=== PATIENT | female | born 1975 | race Caucasian/White ===

== ENCOUNTER 2016-07-21 19:56 | Emergency (ER) | payer MEDICAID ==
[2016-07-21 19:58] VITALS: BMI 31.1
[2016-07-21 20:07] VITALS: RESP 18; TEMP 98.1
[2016-07-21] MEDS ORDERED: Oxycodone/Acetaminophen 5/325 mg Tab PO STA (20:08)
--- NOTE | 2016-07-21 20:13 | ED PDOC ---
Arrival/HPI - General Chief Complaint: Lower Extremity Problem/Injury Time Seen by Provider: 07/21/16 19:59 Historian: Patient - History of Present Illness Narrative History of Present Illness (Text): 07/21/16 20:09 41 y/o female, pmh including sciatica, c/o rt. lower back/gluteal pain radiating to the rt. lower extremity started yesterday with no fall or trauma. Sharp pain, aggravated by movement, no pain medication taken for the past 8 hours, no numbness or tingling, no urinary symptoms, no urinary or bowel incontinence or retention, no night sweat, no dizziness, no flank pain, no hematuria, no other medical or psychological complaints. Past Medical History - Provider Review Nursing Documentation Reviewed: Yes - Past Medical History Past Medical History: No Previous - Psychiatric Hx Depression: No Hx Emotional Abuse: No Hx Physical Abuse: No Hx Substance Use: No - Surgical History Hx Appendectomy: Yes - Anesthesia Hx Anesthesia: No - Suicidal Assessment Feels Threatened In Home Enviroment: No Family/Social History - Physician Review Nursing Documentation Reviewed: Yes Family/Social History: Unknown Family HX Smoking Status: Never Smoked Hx Alcohol Use: No Hx Substance Use: No Hx Substance Use Treatment: No Allergies/Home Meds Allergies/Adverse Reactions: Allergies No Known Allergies Allergy (Verified 07/21/16 19:59) pt bstates no allergy to medication Home Medications: Home Meds Medication Instructions Recorded Confirmed Hyoscyamine [Levsin] 10/11/15 Review of Systems - Review of Systems Constitutional: absent: Fatigue, Fevers Eyes: absent: Vision Changes ENT: absent: Hearing Changes Respiratory: absent: Cough Cardiovascular: absent: Chest Pain Gastrointestinal: absent: Abdominal Pain, Diarrhea, Nausea, Vomiting Musculoskeletal: Back Pain. absent: Arthralgias, Neck Pain, Joint Swelling, Myalgias Skin: absent: Rash, Pruritis, Skin Lesions, Laceration, Abscess, Ulcer, Cellulitis Physical Exam Vital Signs Reviewed: Yes Vital Signs Temp Pulse Resp BP Pulse Ox 07/21/16 20:06 98.1 F 76 18 130/76 99 Temperature: Afebrile Blood Pressure: Normal Pulse: Regular Respiratory Rate: Normal Appearance: Positive for: Well-Appearing, Non-Toxic, Comfortable Pain Distress: Severe Mental Status: Positive for: Alert and Oriented X 3 - Systems Exam Head: Present: Atraumatic, Normocephalic Pupils: Present: PERRL Extroacular Muscles: Present: EOMI Conjunctiva: Present: Normal Mouth: Present: Moist Mucous Membranes Neck: Present: Normal Range of Motion Respiratory/Chest: Present: Clear to Auscultation, Good Air Exchange. No: Respiratory Distress, Accessory Muscle Use Cardiovascular: Present: Regular Rate and Rhythm, Normal S1, S2. No: Murmurs Abdomen: Present: Normal Bowel Sounds. No: Tenderness, Distention, Peritoneal Signs Back: Present: Normal Inspection, Other (LS spine: no midline tenderness or step off, no paraspinal tenderness, no rash, FROM without limitation, sensation intact, motor 5/5, no saddling gait. ). No: CVA Tenderness, Midline Tenderness , Paraspinal Tenderness, Pain with Leg Raise Upper Extremity: Present: Normal Inspection. No: Cyanosis, Edema Lower Extremity: Present: Normal Inspection. No: Edema Neurological: Present: GCS=15, CN II-XII Intact, Speech Normal Skin: Present: Warm, Dry, Normal Color. No: Rashes Psychiatric: Present: Alert, Oriented x 3, Normal Insight, Normal Concentration Medical Decision Making ED Course and Treatment: 07/21/16 20:12 -toradol, percocet and lidoderm patch 07/21/16 21:14 -Urine hcg negative -Pt. feels better, will discharge home. -Discharge home with cane, duexis, flexeril, lidoderm patch, heat compression, avoid strenuous exercise or activity, follow up with your own pmd and pain management within 2 days, return to the ER for any new or worsening signs or symptoms. - Medication Orders Current Medication Orders: Discontinued Medications Ketorolac Tromethamine (Toradol) 60 mg IM STAT STA Stop: 07/21/16 20:09 Last Admin: 07/21/16 20:34 Dose: 60 MG IM Administration Charges Document 07/21/16 20:34 EQ (Rec: 07/21/16 20:34 EQ [facility] [id number]) Injection Site MAR Injection Site Left Deltoid Charges for Administration # of IM Administrations 1 Lidocaine (Lidoderm) 1 ea TD DAILY SKYLAR Lidocaine (Lidoderm) 1 ea TD STAT STA Stop: 07/21/16 20:35 Last Admin: 07/21/16 21:09 Dose: 1 EA MAR Transdermal Patch Site Document 07/21/16 21:09 EQ (Rec: 07/21/16 21:09 EQ [facility] [id number]) Transdermal Patch Site Transdermal Patch Site Right Lower Back Oxycodone/Acetaminophen (Percocet 5/325 Mg Tab) 1 tab PO STAT STA Stop: 07/21/16 20:09 Last Admin: 07/21/16 20:34 Dose: 1 TAB - PA / LAUNDRY CLERK / Resident Statement MD/DO has reviewed & agrees with the documentation as recorded. Disposition/Present on Arrival - Present on Arrival Any Indicators Present on Arrival: No History of DVT/PE: No History of Uncontrolled Diabetes: No Urinary Catheter: No History of Decub. Ulcer: No History Surgical Site Infection Following: None - Disposition Have Diagnosis and Disposition been Completed?: Yes Diagnosis: Sciatica Disposition: HOME/ ROUTINE Disposition Time: 20:13 Patient Plan: Discharge Patient Problems: Current Active Problems Problem Status Diagnosed Sciatica Acute Condition: IMPROVED Additional Instructions: Discharge home with cane, duexis, flexeril, lidoderm patch, heat compression, avoid strenuous exercise or activity, follow up with your own pmd and pain management within 2 days, return to the ER for any new or worsening signs or symptoms. Prescriptions: Ibuprofen/Famotidine [Duexis 26.6 mg-800 mg] 1 tab PO TID PRN #21 tab PRN Reason: Other Cyclobenzaprine [Cyclobenzaprine HCl] 10 mg PO TID PRN #21 tab PRN Reason: Other Lidocaine 5% [Lidoderm] 1 patch TOP DAILY PRN #10 patch PRN Reason: Other Referrals: [facility] [place] [Outside] - Follow up with primary Forms: WORK NOTE
[2016-07-21] MEDS ORDERED: Lidocaine 5% Patch TD STA (20:34)
[2016-07-21 21:40] VITALS: BP 123/72; PULSE 70; O2SAT 100
[2016-07-22] MEDS ORDERED: Lidocaine 5% Patch TD SCH (10:00)
== END 2016-07-21 21:41 | disposition home or self-care (01) ==
LOC: ED 19:56
DX: M54.30 Sciatica, unspecified side (principal)
CPT/HCPCS: 96372; 99284; J1885

== ENCOUNTER 2016-09-03 17:34 | Emergency (ER) | payer MEDICAID ==
[2016-09-03 17:34] VITALS: BMI 31.1
[2016-09-03 17:54] VITALS: TEMP 98.7
[2016-09-03 18:52] LABS: ADD MANUAL DIFF? NO
[2016-09-03 18:58] LABS: URINE BILIRUBIN NEGATIVE (NEGATIVE); URINE BLOOD NEGATIVE (NEGATIVE); URINE GLUCOSE (UA) NEGATIVE (NEGATIVE); URINE KETONE NEGATIVE (NEGATIVE); URINE LEUKOCYTE ESTERASE NEGATIVE Leu/uL (NEGATIVE); URINE PROTEIN NEGATIVE mg/dL (<30 mg/dL); URINE UROBILINOGEN 0.2 E.U./dL (<1 E.U./dL)
[2016-09-03 18:59] LABS: BASO # 0.03 K/mm3 (0.0-2.0); BASO % 0.7 % (0.0-3.0); EOS # 0.1 (0.0-0.7); EOS % 2.9 % (1.5-5.0); GRAN # 1.76 (1.4-6.5); GRAN % 39.7 % (50.0-68.0); HEMATOCRIT 34.2 % (36.0-48.0); LYMPH # 2.2 (1.2-3.4); LYMPH % 48.8 % (22.0-35.0); MEAN CELL VOLUME 82.4 fL (80.0-105.0); MEAN CORPUSCULAR HEMOGLOBIN 28.2 pg (25.0-35.0); MEAN CORPUSCULAR HGB CONC 34.2 g/dl (31.0-37.0); MEAN PLATELET VOLUME 9.9 fl (7.0-11.0); MONO # 0.4 (0.1-0.6); MONO % 7.9 % (1.0-6.0); PLATELET COUNT 270 10^3/uL (120.0-450.0); RED CELL DISTRIBUTION WIDTH 12.4 % (11.5-14.5); WHITE BLOOD COUNT 4.4 10^3/ul (4.5-11.0)
[2016-09-03 19:09] LABS: ALB/GLOB RATIO 1.3 (1.1-1.8); ALKALINE PHOSPHATASE 61 U/L (38-133); ALT/SGPT 31 U/L (7-56); AST/SGOT 22 U/L (15-39); BILIRUBIN,TOTAL 0.7 mg/dL (0.2-1.3); BLOOD UREA NITROGEN 12 mg/dL (7-21); CALCIUM 9.3 mg/dL (8.4-10.5); CARBON DIOXIDE 24 mmol/L (21-33); CHLORIDE 105 mmol/L (98-107); GFR AFRICAN-AMERICAN > 60; GLUCOSE,RANDOM 96 mg/dL (70-110); POTASSIUM 3.8 mmol/L (3.6-5.0); SODIUM 136 mmol/L (132-148); URINE APPEARANCE CLEAR (CLEAR); URINE COLOR LIGHT YELLOW (YELLOW)
[2016-09-03 19:22] LABS: TROPONIN I < 0.01 ng/mL
[2016-09-03 19:38] LABS: PARTIAL THROMBOPLASTIN TIME 28.1 Seconds (23.7-30.8)
[2016-09-03 19:47] LABS: D DIMER 0.36 mg/L FEU (0-0.50)
--- NOTE | 2016-09-03 19:48 | ED PDOC ---
Arrival/HPI - General Historian: Patient - General Chief Complaint: Chest Pain Time Seen by Provider: 09/03/16 17:35 - History of Present Illness Narrative History of Present Illness (Text): 09/03/16 19:41 41yo female with no PMHx present with complaint of right sided chest pain x 3days. States chest pain started while lifting laundry 3days ago. She notes that she was seen by her PMD for the pain and given injection for the pain. she came to ED for the persistent pain with movement and deep inspiration. Pain is localized to her right upper sternal wall. States she took Ibuprofen earlier today without relieve. she denies SOB, diaphoresis, recent surgery, OCP use, recent travel, any other complaint. (Juan Padron A) Past Medical History - Provider Review Nursing Documentation Reviewed: Yes - Past Medical History Past Medical History: No Previous - Psychiatric Hx Depression: No Hx Emotional Abuse: No Hx Physical Abuse: No Hx Substance Use: No - Surgical History Hx Appendectomy: Yes - Anesthesia Hx Anesthesia: No Hx Anesthesia Reactions: No Hx Malignant Hyperthermia: No - Suicidal Assessment Feels Threatened In Home Enviroment: No Family/Social History - Physician Review Nursing Documentation Reviewed: Yes Family/Social History: Unknown Family HX Smoking Status: Never Smoked Hx Alcohol Use: No Hx Substance Use: No Hx Substance Use Treatment: No Allergies/Home Meds Allergies/Adverse Reactions: Allergies No Known Allergies Allergy (Verified 07/21/16 19:59) pt bstates no allergy to medication Home Medications: Home Meds Medication Instructions Recorded Confirmed Hyoscyamine [Levsin] 10/11/15 Review of Systems - Physician Review All systems were reviewed & negative as marked: Yes - Review of Systems Constitutional: Normal Eyes: Normal ENT: Normal Respiratory: Normal Cardiovascular: Chest Pain. absent: Palpitations, Edema, Calf Pain, Orthopnea Gastrointestinal: Normal Genitourinary Female: Normal Musculoskeletal: Normal Skin: Normal Neurological: Normal Endocrine: Normal Hemo/Lymphatic: Normal Psychiatric: Normal Physical Exam Vital Signs Reviewed: Yes Temperature: Afebrile Blood Pressure: Normal Pulse: Regular Respiratory Rate: Normal Appearance: Positive for: Well-Appearing, Non-Toxic, Comfortable Pain Distress: None Mental Status: Positive for: Alert and Oriented X 3 - Systems Exam Head: Present: Atraumatic, Normocephalic Pupils: Present: PERRL Extroacular Muscles: Present: EOMI Conjunctiva: Present: Normal Mouth: Present: Moist Mucous Membranes Neck: Present: Normal Range of Motion Respiratory/Chest: Present: Clear to Auscultation, Good Air Exchange, Tender to Palpation (Right upper sternal wall). No: Respiratory Distress, Accessory Muscle Use, Wheezes, Decreased Breath Sounds, Rales, Retracting, Rhonchi Cardiovascular: Present: Regular Rate and Rhythm, Normal S1, S2. No: Murmurs Abdomen: Present: Normal Bowel Sounds. No: Tenderness, Distention, Peritoneal Signs Back: Present: Normal Inspection Upper Extremity: Present: Normal Inspection. No: Cyanosis, Edema Lower Extremity: Present: Normal Inspection. No: Edema Neurological: Present: GCS=15, CN II-XII Intact, Speech Normal Skin: Present: Warm, Dry, Normal Color. No: Rashes Psychiatric: Present: Alert, Oriented x 3, Normal Insight, Normal Concentration Vital Signs Temp Pulse Resp BP Pulse Ox 09/03/16 20:19 69 16 113/66 99 09/03/16 17:34 98.7 F 98 H 18 114/70 100 Medical Decision Making ED Course and Treatment: I was available for consultation during PA evaluation. The chart was reviewed by me, and I agree with disposition. The documented history was done by the physician dry pan operator. The documented physical exam was done by the physician dry pan operator. The documented procedures were done by the physician dry pan operator. ( Favio Weathers) Pt was comfortable in ED. Her CE was negative. PT do not meet the PERC criteria. CXR was negative. EKG NSR @77bpm with no ST changes Pt's pain is likely MS in origin. Her pain improved in ED with medication. She already have NSAID from her PMD for the pain. She was DC home with Tramadol and referred to her PMD/Pharmacist Intern. Advised TRT ED for any new or worsening symptoms. She expressed understanding of the instructions. (Juan Padron) - Lab Interpretations Lab Results: 09/03/16 18:40 09/03/16 18:40 Lab Results 09/03/16 18:40: Urine Opiates Screen Negative, Urine Methadone Screen Negative, Ur Barbiturates Screen Negative, Ur Phencyclidine Scrn Negative, Ur Amphetamines Screen Negative, U Benzodiazepines Scrn Negative, U Oth Cocaine Metabols Negative, U Cannabinoids Screen Negative 09/03/16 18:40: Sodium 136, Potassium 3.8, Chloride 105, Carbon Dioxide 24, Anion Gap 11, BUN 12, Creatinine 0.6, Est GFR ( Amer) > 60, Est GFR (Non- Af Amer) > 60, Random Glucose 96, Calcium 9.3, Magnesium 2.0, Total Bilirubin 0.7, AST 22, ALT 31, Alkaline Phosphatase 61, Lactate Dehydrogenase 393, Total Creatine Kinase 133, Troponin I < 0.01, Total Protein 7.0, Albumin 4.0, Globulin 3.0, Albumin/Globulin Ratio 1.3 09/03/16 18:40: Urine Color Light yellow, Urine Appearance Clear, Urine pH 7.0, Ur Specific [place] <= 1.005, Urine Protein Negative, Urine Glucose (UA) Negative, Urine Ketones Negative, Urine Blood Negative, Urine Nitrate Negative, Urine Bilirubin Negative, Urine Urobilinogen 0.2, Ur Leukocyte Esterase Negative 09/03/16 18:40: PT 10.8, INR 1.00, APTT 28.1, D-Dimer, Quantitative 0.36 09/03/16 18:40: WBC 4.4 L D, RBC 4.15, Hgb 11.7 L, Hct 34.2 L, MCV 82.4, MCH 28.2, MCHC 34.2, RDW 12.4, Plt Count 270, MPV 9.9, Gran % 39.7 L, Lymph % (Auto ) 48.8 H, [place] % (Auto) 7.9 H, Eos % (Auto) 2.9, Baso % (Auto) 0.7, Gran # 1.76 , Lymph # 2.2, [place] # 0.4, Eos # 0.1, Baso # 0.03 - RAD Interpretation Radiology Orders: 09/03/16 18:03 CHEST PORTABLE [RAD] Stat - Medication Orders Current Medication Orders: Discontinued Medications Ketorolac Tromethamine (Toradol) 30 mg IVP STAT STA Stop: 09/03/16 18:04 Last Admin: 09/03/16 18:37 Dose: 30 mg Disposition/Present on Arrival - Present on Arrival Any Indicators Present on Arrival: No History of DVT/PE: No History of Uncontrolled Diabetes: No Urinary Catheter: No History of Decub. Ulcer: No History Surgical Site Infection Following: None - Disposition Have Diagnosis and Disposition been Completed?: Yes Disposition Time: 20:20 - Disposition Diagnosis: Chest pain Disposition: HOME/ ROUTINE Condition: STABLE Discharge Instructions (ExitCare): Chest Pain (ED) Additional Instructions: Follow up with your Doctor Return to ED for any new or worsening symptoms Prescriptions: traMADol [Ultram] 50 mg PO Q6 #9 tab Referrals: Willard Talavera DPM [Primary Care Provider] - Follow up with primary Forms: WORK NOTE
[2016-09-03 20:20] VITALS: BP 113/66; PULSE 69; RESP 16; O2SAT 99
--- NOTE | 2016-09-04 07:56 | RAD ---
HISTORY: chest pain COMPARISON: No prior. FINDINGS: LUNGS: No active pulmonary disease. PLEURA: No significant pleural effusion identified, no pneumothorax apparent. CARDIOVASCULAR: Normal heart size. Nasogastric tube extends to left upper quadrant of abdomen. OSSEOUS STRUCTURES: No significant abnormalities. VISUALIZED UPPER ABDOMEN: Normal. OTHER FINDINGS: None. IMPRESSION: No active disease. NG tube appropriately positioned.
--- NOTE | 2016-09-05 02:03 | CARD ---
APPROVED REPORT EKG Measurement Heart [id number] ME [id number] <Conclusion> Normal sinus rhythm Normal ECG
== END 2016-09-03 20:30 | disposition home or self-care (01) ==
LOC: ED 17:34
DX: R07.9 Chest pain, unspecified (principal)
CPT/HCPCS: 71010; 80053; 80324; 80345; 80346; 80349; 80353; 80358; 80361; 81003; 82550; 83615; 83735; 83992; 84484; 85025; 85378; 85610; 85730; 96374; 99283; J1885

== ENCOUNTER 2016-12-21 17:58 | Emergency (ER) | payer MEDICAID ==
[2016-12-21 18:13] VITALS: BMI 30.9
[2016-12-21 18:17] VITALS: TEMP 98.7
[2016-12-21] MEDS ORDERED: TDAP Vaccine 0.5 mL Syr IM ONE (20:28)
--- NOTE | 2016-12-21 20:29 | ED PDOC ---
Arrival/HPI - General Chief Complaint: Abnormal Skin Integrity Time Seen by Provider: 12/21/16 18:48 Historian: Patient - History of Present Illness Narrative History of Present Illness (Text): 12/22/16 01:02 41 yo F reports sustaining a laceration to the distal tip of her right fourth finger from a broken glass prior to arrival. Otherwise: (-) other injury, (-) numbness, (-) decrease in ROM. Patient is R hand dominant. PMD Ilan Past Medical History - Provider Review Nursing Documentation Reviewed: Yes - Infectious Disease Hx of Infectious Diseases: None - Tetanus Immunization Tetanus Immunization: Unknown - Past Medical History Past Medical History: No Previous - Psychiatric Hx Substance Use: No - Surgical History Hx Appendectomy: Yes - Anesthesia Hx Anesthesia: No Hx Anesthesia Reactions: No Hx Malignant Hyperthermia: No - Suicidal Assessment Feels Threatened In Home Enviroment: No Family/Social History - Physician Review Nursing Documentation Reviewed: Yes Family/Social History: No Known Family HX Smoking Status: Never Smoked Hx Alcohol Use: No Hx Substance Use: No Hx Substance Use Treatment: No Allergies/Home Meds Allergies/Adverse Reactions: Allergies No Known Allergies Allergy (Verified 07/21/16 19:59) pt bstates no allergy to medication Home Medications: Home Meds Medication Instructions Recorded Confirmed No Known Home Med 12/21/16 12/21/16 Review of Systems - Review of Systems Constitutional: Normal. absent: Fatigue, Weight Change, Fevers Musculoskeletal: Normal. absent: Arthralgias, Back Pain, Neck Pain Skin: Normal, Laceration. absent: Rash, Pruritis Physical Exam - Physical Exam Narrative Physical Exam (Text): 12/22/16 01:05 GENERAL APPEARANCE: Patient is awake, alert, oriented x 3, in mild painful distress. SKIN: Warm, (-) rash, (-) lesions. UPPER EXTREMITY: (+) 1.5 cm laceration to the distal tip of the R 4th digit with tenderness, (-) swelling, (-) ecchymosis; (-) crepitus, (-) deformity. Tendon function intact. (-) distal neurovascular deficit. 2 point discrimination. Remainder of hand, digits and wrist: (-) injury. Vital Signs Temp Pulse Resp BP Pulse Ox 12/21/16 20:39 72 17 110/81 98 12/21/16 19:03 74 18 107/74 97 12/21/16 17:58 98.7 F 78 18 105/72 97 Medical Decision Making ED Course and Treatment: 12/22/16 01:06 41 yo F sustained a laceration to the R 4th digit captain assistant. Plan : - Tdap IM - Laceration repair The wound is R 4th digit. The wound was copiously irrigated with normal saline. The wound was prepped and draped in the normal sterile fashion. The wound was explored for foreign bodies and none were found. The wound was anesthetised using lidocaine. The edges were reapproximated using 2, 5-0 prolene by KAITLIN. Bleeding was well controlled and the patient tolerated the procedure well. Patient advised to keep the wound dry, clean and covered. Otherwise instructed to follow up with primary care physician in 2 days without fail for wound check. Advised to have sutures removed after 7 days. Return to the emergency room at any time for any new or worsening symptoms. Patient states she fully agrees with and understands discharge instructions. States that she agrees with the plan and disposition. Verbalized and repeated discharge instructions and plan. I have given the patient opportunity to ask any additional questions. - Medication Orders Current Medication Orders: Discontinued Medications Tetanus/Reduced Diphtheria/Acell Pertussis (Boostrix Vaccine Inj) 0.5 ml IM .ONCE ONE Stop: 12/21/16 20:29 Last Admin: 12/21/16 20:40 Dose: - PA / SET UP AND CHARGER / Resident Statement / has reviewed & agrees with the documentation as recorded. Disposition/Present on Arrival - Present on Arrival Any Indicators Present on Arrival: No History of DVT/PE: No History of Uncontrolled Diabetes: No Urinary Catheter: No History of Decub. Ulcer: No History Surgical Site Infection Following: None - Disposition Have Diagnosis and Disposition been Completed?: Yes Diagnosis: Finger laceration Disposition: HOME/ ROUTINE Disposition Time: 20:28 Patient Plan: Discharge Condition: STABLE Discharge Instructions (ExitCare): Care For Your Stitches (ED), Laceration (ED) Print Language: UGANDAN Additional Instructions: Thank you for letting us take care of you today. You were treated for finger laceration. The emergency medical care you received today was directed at your acute symptoms. Have sutures removed after 7 days. Return to the Emergency Department if your symptoms worsen, do not improve, or if you have any other problems. Please contact your doctor in 2 days for re-evaluation and follow up. Bring any paperwork you were given at discharge with you along with any medications you are taking to your follow up visit. Our treatment cannot replace ongoing medical care by a primary care provider (PCP) outside of the emergency department. Thank you for allowing the [facility] team to be part of your care today. Forms: [employer] (Mongolian)
[2016-12-21 20:40] VITALS: BP 110/81; PULSE 72; RESP 17; O2SAT 98
== END 2016-12-21 20:41 | disposition home or self-care (01) ==
LOC: ED 17:58
DX: S61.214A Laceration without foreign body of right ring finger without damage to nail, initial encounter (principal); W25.XXXA Contact with sharp glass, initial encounter

== ENCOUNTER 2017-05-13 19:02 | Emergency (ER) | payer MEDICAID ==
[2017-05-13 19:03] VITALS: BMI 30.9
[2017-05-13] MEDS ORDERED: Sodium Chloride 0.9% 1,000 ML IV STA (20:18)
[2017-05-13] MEDS ORDERED: Iohexol 240 (50 ml) ONE (20:22)
--- NOTE | 2017-05-13 20:22 | ED PDOC ---
Arrival/HPI - General Chief Complaint: Abdominal Pain Time Seen by Provider: 05/13/17 20:04 Historian: Patient - History of Present Illness Narrative History of Present Illness (Text): 05/13/17 20:18 Evie Bustos is a 41 year old female who presents to the emergency department complaining abdominal pain, primarily in LLQ, after lunch today. Patient notes that it is painful to pass a bowel movement. Patient denies any fever, chills, chest pain, shortness of breath, nausea, vomiting, diarrhea, urinary symptoms, back pain, neck pain, headache, dizziness, or any other complaints. LMP was 7- 10 days ago and was normal. Time/Duration: 4-6 hours Symptom Onset: Gradual Symptom Course: Unchanged Activities at Onset: Light Context: Home Past Medical History - Provider Review Nursing Documentation Reviewed: Yes - Infectious Disease Hx of Infectious Diseases: None - Tetanus Immunization Tetanus Immunization: Unknown - Reproductive Menopause: No - Past Medical History Past Medical History: No Previous - Psychiatric Hx Depression: No Hx Emotional Abuse: No Hx Physical Abuse: No Hx Substance Use: No - Surgical History Hx Appendectomy: Yes - Anesthesia Hx Anesthesia: No Hx Anesthesia Reactions: No Hx Malignant Hyperthermia: No - Suicidal Assessment Feels Threatened In Home Enviroment: No Family/Social History - Physician Review Nursing Documentation Reviewed: Yes Family/Social History: No Known Family HX Smoking Status: Never Smoked Hx Alcohol Use: No Hx Substance Use: No Hx Substance Use Treatment: No Allergies/Home Meds Allergies/Adverse Reactions: Allergies No Known Allergies Allergy (Verified 05/13/17 19:42) pt bstates no allergy to medication Review of Systems - Physician Review All systems were reviewed & negative as marked: Yes - Review of Systems Constitutional: absent: Fevers, Night Sweats Eyes: absent: Vision Changes ENT: absent: Hearing Changes Respiratory: absent: SOB, Cough Cardiovascular: absent: Chest Pain Gastrointestinal: Abdominal Pain Genitourinary Female: absent: Dysuria, Frequency Musculoskeletal: absent: Arthralgias Skin: absent: Rash, Pruritis Neurological: absent: Headache, Dizziness Endocrine: absent: Diaphoresis, Polyuria Hemo/Lymphatic: absent: Adenopathy Psychiatric: absent: Anxiety, Depression Physical Exam Vital Signs Reviewed: Yes Vital Signs Temp Pulse Resp BP Pulse Ox 05/14/17 01:00 97.8 F 65 16 121/66 99 05/13/17 23:00 98.4 F 70 16 112/80 99 05/13/17 21:03 98.4 F 70 16 110/80 99 05/13/17 19:39 98.4 F 72 18 115/65 98 Temperature: Afebrile Blood Pressure: Normal Pulse: Regular Respiratory Rate: Normal Appearance: Positive for: Well-Appearing, Non-Toxic, Comfortable Pain Distress: None Mental Status: Positive for: Alert and Oriented X 3 - Systems Exam Head: Present: Atraumatic, Normocephalic Pupils: Present: PERRL Extroacular Muscles: Present: EOMI Conjunctiva: Present: Normal Mouth: Present: Moist Mucous Membranes Neck: Present: Normal Range of Motion Respiratory/Chest: Present: Clear to Auscultation, Good Air Exchange. No: Respiratory Distress, Accessory Muscle Use Cardiovascular: Present: Regular Rate and Rhythm, Normal S1, S2. No: Murmurs Abdomen: Present: Tenderness (to LLQ) Back: Present: Normal Inspection Upper Extremity: Present: Normal Inspection. No: Cyanosis, Edema Lower Extremity: Present: Normal Inspection. No: Edema Neurological: Present: GCS=15, CN II-XII Intact, Speech Normal Skin: Present: Warm, Dry, Normal Color. No: Rashes Psychiatric: Present: Alert, Oriented x 3, Normal Insight, Normal Concentration Medical Decision Making ED Course and Treatment: 05/13/17 20:21 Impression: 41 year old female complaining of LLQ abdominal pain today. Differential Diagnosis included but are not limited to: Diverticulitis Plan: -- Abdomen and Pelvis CT w/ contrast -- Urine Culture and Urinalysis -- Labs -- Toradol, Zofran, and IV fluids -- Reassess and disposition Prior Visits: Notes and results from previous visits were reviewed. Patient was last seen in the emergency department on 12/21/16 for a laceration to the distal tip of her right fourth finger from a broken glass. Patient was discharged home. Progress Notes: CT Abdomen and Pelvis With Intravenous Contrast FINDINGS: Limitations: Motion artifact - mild. Lower thorax: Small hiatal hernia. ABDOMEN: Liver: Stable calcification. Gallbladder and bile ducts: Cholecystectomy. No significant ductal dilation. Pancreas: No ductal dilation. No mass. Spleen: No splenomegaly. Adrenals: No mass. Kidneys and ureters: No mass. No hydronephrosis. Stomach and bowel: No definite mural thickening. No obstruction. Appendix: Appendectomy. PELVIS: Bladder: Unremarkable. Reproductive: Tubal implants. 1.3 x 1.1 x 1.3 cm solid lesion within endometrial canal. 3.4 x 3.0 x 3.0 cm hypodense lesion within LEFT ovary. ABDOMEN and PELVIS: Intraperitoneal space: Trace free fluid within pelvis. No free air. Bones/joints: No acute fracture. Soft tissues: Unremarkable. Vasculature: Unremarkable. No aneurysm. Lymph nodes: No pathologically enlarged lymph nodes. IMPRESSION: 1. Probable LEFT ovarian cyst. Consider ultrasound. 2. Endometrial lesion, indeterminate. Recommend ultrasound 3. Incidental/non-acute findings are described above. Dictated and Authenticated by: Allen Palacio MD 05/13/2017 11:38 PM Eastern Time ( & [place]) 05/14/17 00:[address] results with patient. Ordered Transvaginal US. US Pelvis, Transvaginal FINDINGS: Uterus/cervix: Uterus measures 7.8 x 5.1 x 5.6 cm in size. No myometrial mass. Endometrium: 1.3 cm in thickness. 1.7 x 1.4 x 1.3 cm heterogeneous, hypervascular mass within endometrial canal. Right ovary: Not visualized. Left ovary: 6.0 x 3.5 x 3.1 cm in size. 3.1 x 3.1 x 2.8 cm septated hypoechoic lesion with low level internal echoes. Normal flow. Free fluid: No significant free fluid. Bladder: Empty bladder which cannot be evaluated with this probe. IMPRESSION: 1. Probable hemorrhagic LEFT ovarian cyst. Recommend sonographic followup in 6 weeks to ensure resolution and exclude other etiologies. 2. Endometrial lesion, indeterminate. Neoplasm not excluded. Clinical correlation is needed. Dictated and Authenticated by: Allen Palacio MD 05/14/2017 2:15 AM Eastern Time ( & [place]) - Lab Interpretations Lab Results: 05/13/17 21:00 05/13/17 21:00 Lab Results 05/13/17 21:00: Sodium 138, Potassium 3.8, Chloride 103, Carbon Dioxide 25, Anion Gap 14, BUN 17, Creatinine 0.6 L, Est GFR ( Amer) > 60, Est GFR ( Non-Af Amer) > 60, Random Glucose 83, Calcium 9.7, Total Bilirubin 0.5, AST 24, ALT 31, Alkaline Phosphatase 63, Total Protein 7.1, Albumin 4.1, Globulin 3.0, Albumin/Globulin Ratio 1.4, Lipase 47 05/13/17 21:00: PT 11.7, INR 1.00 05/13/17 21:00: WBC 5.1, RBC 4.20, Hgb 11.7 L, Hct 35.9 L, MCV 85.5, MCH 27.9, MCHC 32.6, RDW 12.8, Plt Count 258, MPV 10.7, Gran % 42.4 L, Lymph % (Auto) 48.1 H, [place] % (Auto) 6.7 H, Eos % (Auto) 2.4, Baso % (Auto) 0.4, Gran # 2.14, Lymph # (Auto) 2.4, [place] # (Auto) 0.3, Eos # (Auto) 0.1, Baso # (Auto) 0.02 05/13/17 21:00: Urine Color Yellow, Urine Appearance Sl cloudy, Urine pH 7.0, Ur Specific [place] 1.010, Urine Protein Negative, Urine Glucose (UA) Negative, Urine Ketones Negative, Urine Blood Negative, Urine Nitrate Negative, Urine Bilirubin Negative, Urine Urobilinogen 0.2, Ur Leukocyte Esterase Moderate H, Urine RBC 0 - 2, Urine WBC 2 - 5, Ur Epithelial Cells 6 - 8, Urine Bacteria Few I have reviewed the lab results: Yes - RAD Interpretation Radiology Orders: 05/13/17 20:18 ABD PELVIS PO & IV CONTRAST [CT] Stat 05/13/17 23:46 TRANSVAGINAL [US] Stat - Medication Orders Current Medication Orders: Discontinued Medications Sodium Chloride (Sodium Chloride 0.9%) 1,000 mls @ 999 mls/hr IV .Q1H1M STA Stop: 05/13/17 21:18 Last Admin: 05/13/17 20:41 Dose: 999 mls/hr eMAR Start Stop Document 05/13/17 20:41 SF (Rec: 05/13/17 20:41 SF [id number] Intravenous Solution Start Date 05/13/17 Start Time 20:41 End Date 05/13/17 End time 21:42 Total Infusion Time 61 Ketorolac Tromethamine (Toradol) 30 mg IVP STAT STA Stop: 05/13/17 20:19 Last Admin: 05/13/17 20:32 Dose: 30 mg MAR Pain Assessment Document 05/13/17 20:32 SF (Rec: 05/13/17 20:33 [place] [id number]) Pain Reassessment Is this a pain reassessment? Yes Sleep Is patient sleeping during reassessment? No Presence of Pain Presence of Pain Yes Pain Scale Used Pain Scale Used Numeric IVP Administration Document 05/13/17 20:32 SF (Rec: 05/13/17 20:33 [place] [id number]) Charges for Administration # of IVP Administrations 1 Ondansetron HCl (Zofran Inj) 4 mg IVP STAT STA Stop: 05/13/17 20:19 Last Admin: 05/13/17 20:32 Dose: 4 mg IVP Administration Document 05/13/17 20:32 SF (Rec: 05/13/17 20:32 [place] [id number]) Charges for Administration # of IVP Administrations 1 - PA / LAUNDRY PRICING CLERK / Resident Statement MD/DO has reviewed & agrees with the documentation as recorded. - Scribe Statement The provider has reviewed the documentation as recorded by the Lynn Vu Provider Scribe Attestation: All medical record entries made by the Lynn were at my direction and personally dictated by me. I have reviewed the chart and agree that the record accurately reflects my personal performance of the history, physical exam, medical decision making, and the department course for this patient. I have also personally directed, reviewed, and agree with the discharge instructions and disposition. Disposition/Present on Arrival - Present on Arrival Any Indicators Present on Arrival: No History of DVT/PE: No History of Uncontrolled Diabetes: No Urinary Catheter: No History of Decub. Ulcer: No History Surgical Site Infection Following: None - Disposition Have Diagnosis and Disposition been Completed?: Yes Diagnosis: Hemorrhagic cyst of left ovary Disposition: HOME/ ROUTINE Disposition Time: 02:21 Patient Plan: Discharge Condition: GOOD Discharge Instructions (ExitCare): Ovarian Cyst (ED) Additional Instructions: Mrs. Bustos- You have a ruptured ovarian cyst. Your pain should be less each day and it should be completely gone within a week. Use the motrin as needed for your comfort. Return to us if worse or new symptoms. Follow up and make an appointment to be seen by your cancer registry manager. It was a pleasure to care for you.... Hope you feel better soon..... Dr. Marvel Loaiza Prescriptions: Ibuprofen [Motrin Tab] 800 mg PO TID #30 tab [facility] - Follow up with primary Forms: [employer] (Estonian)
[2017-05-13 21:26] LABS: BASO # 0.02 K/mm3 (0.0-2.0); BASO % 0.4 % (0.0-3.0); EOS # 0.1 (0.0-0.7); EOS % 2.4 % (1.5-5.0); GRAN # 2.14 (1.4-6.5); GRAN % 42.4 % (50.0-68.0); HEMOGLOBIN 11.7 g/dL (12.0-16.0); LYMPH # 2.4 (1.2-3.4); LYMPH % 48.1 % (22.0-35.0); MEAN CELL VOLUME 85.5 fl (80.0-105.0); MEAN CORPUSCULAR HEMOGLOBIN 27.9 pg (25.0-35.0); MEAN CORPUSCULAR HGB CONC 32.6 g/dl (31.0-37.0); MEAN PLATELET VOLUME 10.7 fl (7.0-11.0); MONO # 0.3 (0.1-0.6); MONO % 6.7 % (1.0-6.0); RBC 4.2 10^6/uL (3.5-6.1); RED CELL DISTRIBUTION WIDTH 12.8 % (11.5-14.5); WHITE BLOOD COUNT 5.1 10^3/ul (4.5-11.0)
[2017-05-13 21:28] LABS: URINE BILIRUBIN NEGATIVE (NEGATIVE); URINE BLOOD NEGATIVE (NEGATIVE); URINE GLUCOSE (UA) NEGATIVE (NEGATIVE); URINE LEUKOCYTE ESTERASE MODERATE Leu/uL (NEGATIVE); URINE NITRATE NEGATIVE (NEGATIVE); URINE PROTEIN NEGATIVE mg/dL (<30 mg/dL); URINE UROBILINOGEN 0.2 E.U./dL (<1 E.U./dL)
[2017-05-13 21:35] LABS: URINE APPEARANCE SL CLOUDY (CLEAR); URINE COLOR YELLOW (YELLOW)
[2017-05-13 21:41] LABS: PROTHROMBIN TIME 11.7 SECONDS (9.4-12.5)
[2017-05-13 21:43] LABS: ALB/GLOB RATIO 1.4 (1.1-1.8); ALBUMIN 4.1 g/dL (3.0-4.8); ALT/SGPT 31 U/L (7-56); AST/SGOT 24 U/L (14-36); BLOOD UREA NITROGEN 17 mg/dL (7-21); CALCIUM 9.7 mg/dL (8.4-10.5); GFR AFRICAN-AMERICAN > 60; GFR NON-AFRICAN AMERICAN > 60; LIPASE 47 U/L (23-300)
[2017-05-13 21:45] LABS: URINE BACTERIA FEW (NEG); URINE RBC 0 - 2 /hpf (0-2)
[2017-05-13] MEDS ORDERED: Iohexol 350 MG/100 ML VIAL ONE (21:46)
[2017-05-13 22:01] VITALS: RESP 16; O2SAT 99
--- NOTE | 2017-05-13 23:39 | CT ---
EXAM: CT Abdomen and Pelvis With Intravenous Contrast CLINICAL HISTORY: 41 years old, female; Pain; Abdominal pain; Localized; Left lower quadrant (llq); Additional info: ? Diverticulitis TECHNIQUE: Axial computed tomography images of the abdomen and pelvis with intravenous contrast. All CT scans at this facility use one or more dose reduction techniques, viz.: automated exposure control; ma/kV adjustment per patient size (including targeted exams where dose is matched to indication; i.e. head); or iterative reconstruction technique. Coronal and sagittal reformatted images were created and reviewed. CONTRAST: 100 mL of OMNI administered intravenously. COMPARISON: CT - ABD PELVIS W/O PO OR IV CONT 2015-10-12 02:02 FINDINGS: Limitations: Motion artifact - mild. Lower thorax: Small hiatal hernia. ABDOMEN: Liver: Stable calcification. Gallbladder and bile ducts: Cholecystectomy. No significant ductal dilation. Pancreas: No ductal dilation. No mass. Spleen: No splenomegaly. Adrenals: No mass. Kidneys and ureters: No mass. No hydronephrosis. Stomach and bowel: No definite mural thickening. No obstruction. Appendix: Appendectomy. PELVIS: Bladder: Unremarkable. Reproductive: Tubal implants. 1.3 x 1.1 x 1.3 cm solid lesion within endometrial canal. 3.4 x 3.0 x 3.0 cm hypodense lesion within LEFT ovary. ABDOMEN and PELVIS: Intraperitoneal space: Trace free fluid within pelvis. No free air. Bones/joints: No acute fracture. Soft tissues: Unremarkable. Vasculature: Unremarkable. No aneurysm. Lymph nodes: No pathologically enlarged lymph nodes. IMPRESSION: 1. Probable LEFT ovarian cyst. Consider ultrasound. 2. Endometrial lesion, indeterminate. Recommend ultrasound 3. Incidental/non-acute findings are described above.
[2017-05-14 01:46] VITALS: BP 121/66; PULSE 65; TEMP 97.8
--- NOTE | 2017-05-14 02:15 | US ---
EXAM: US Pelvis Complete, Transabdominal CLINICAL HISTORY: 41 years old, female; Pain; Pelvic pain; Additional info: L sided pain, left ovarian cyst TECHNIQUE: Real-time transabdominal pelvic ultrasound (complete) with image documentation. COMPARISON: CT - ABD PELVIS PO IV CONTRAST 2017-05-13 22:06 FINDINGS: Uterus/cervix: Uterus measures 7.8 x 5.1 x 5.6 cm in size. No myometrial mass. Endometrium: 1.3 cm in thickness. 1.7 x 1.4 x 1.3 cm heterogeneous, hypervascular mass within endometrial canal. Right ovary: Not visualized. Left ovary: 6.0 x 3.5 x 3.1 cm in size. 3.1 x 3.1 x 2.8 cm septated hypoechoic lesion with low level internal echoes. Normal flow. Free fluid: No significant free fluid. Bladder: Unremarkable as visualized. IMPRESSION: 1. Probable hemorrhagic LEFT ovarian cyst. Recommend sonographic followup in 6 weeks to ensure resolution and exclude other etiologies. 2. Endometrial lesion, indeterminate. Neoplasm not excluded. Clinical correlation is needed. EXAM: US Pelvis, Transvaginal CLINICAL HISTORY: 41 years old, female; Pain; Pelvic pain; Additional info: L sided pain, left ovarian cyst TECHNIQUE: Real-time transvaginal pelvic ultrasound (complete) with image documentation. Transvaginal imaging was used for better evaluation of the endometrium and adnexa. COMPARISON: CT - ABD PELVIS PO IV CONTRAST 2017-05-13 22:06 FINDINGS: Uterus/cervix: Uterus measures 7.8 x 5.1 x 5.6 cm in size. No myometrial mass. Endometrium: 1.3 cm in thickness. 1.7 x 1.4 x 1.3 cm heterogeneous, hypervascular mass within endometrial canal. Right ovary: Not visualized. Left ovary: 6.0 x 3.5 x 3.1 cm in size. 3.1 x 3.1 x 2.8 cm septated hypoechoic lesion with low level internal echoes. Normal flow. Free fluid: No significant free fluid. Bladder: Empty bladder which cannot be evaluated with this probe.
== END 2017-05-14 02:38 | disposition home or self-care (01) ==
LOC: ED 19:02
DX: N83.202 Unspecified ovarian cyst, left side (principal)
CPT/HCPCS: 74177; 76830; 80053; 81001; 81025; 83690; 85025; 85610; 87086; 96361; 96374; 96375; 99285; J1885; J2405; J7040; Q9966; Q9967

== ENCOUNTER 2017-05-28 18:55 | Emergency (ER) | payer MEDICAID ==
[2017-05-28 19:37] VITALS: TEMP 98.3; BMI 30.2
[2017-05-28] MEDS ORDERED: Sodium Chloride 0.9% 1,000 ML IV STA (20:54)
--- NOTE | 2017-05-28 20:56 | ED PDOC ---
Arrival/HPI - General Historian: Patient - History of Present Illness Time/Duration: Other (see hpi) Context: Home - General Chief Complaint: Abdominal Pain Time Seen by Provider: 05/28/17 20:53 - History of Present Illness Narrative History of Present Illness (Text): 05/28/17 20:55 This 42 yo female presents to this ED c/o left flank pain x 2 days. Patient stated she was seen in this ED x 2 weeks ago for same complain, and she was diagnosed UTI, and left ovarian cyst ruptured. Patient denies sob, cp, nausea, vomiting, diarrhea, vaginal discharge, dizziness, or abnormal gait. Patient stated she is currently with menstruation. (Ryan Neely) Past Medical History - Provider Review Nursing Documentation Reviewed: Yes - Infectious Disease Hx of Infectious Diseases: None - Tetanus Immunization Tetanus Immunization: Unknown - Past Medical History Past Medical History: No Previous - Psychiatric Hx Substance Use: No - Surgical History Hx Appendectomy: Yes - Anesthesia Hx Anesthesia: No Hx Anesthesia Reactions: No Hx Malignant Hyperthermia: No - Suicidal Assessment Feels Threatened In Home Enviroment: No Family/Social History - Physician Review Nursing Documentation Reviewed: Yes Family/Social History: Other (noncontributory) Smoking Status: Never Smoked Hx Alcohol Use: No Hx Substance Use: No Hx Substance Use Treatment: No Allergies/Home Meds Allergies/Adverse Reactions: Allergies No Known Allergies Allergy (Verified 05/13/17 19:42) pt bstates no allergy to medication Review of Systems - Review of Systems Constitutional: Normal. absent: Fatigue, Weight Change, Fevers Eyes: Normal ENT: Normal Respiratory: Normal Cardiovascular: Normal Gastrointestinal: Abdominal Pain. absent: Stool Changes, Constipation, Diarrhea , Nausea, Vomiting, Appetite Changes, Hematochezia, Anorexia, Food Intolerance Genitourinary Female: Frequency. absent: Dysuria, Hematuria, Vaginal Bleeding, Vaginal Discharge Musculoskeletal: Normal. absent: Back Pain Skin: Normal. absent: Rash Neurological: Normal. absent: Headache, Dizziness Endocrine: Normal Hemo/Lymphatic: Normal Psychiatric: Normal Physical Exam Temperature: Afebrile Blood Pressure: Normal Pulse: Regular Respiratory Rate: Normal Appearance: Positive for: Well-Appearing, Non-Toxic, Comfortable Pain Distress: None Mental Status: Positive for: Alert and Oriented X 3 - Systems Exam Head: Present: Atraumatic, Normocephalic Pupils: Present: PERRL Extroacular Muscles: Present: EOMI Conjunctiva: Present: Normal Mouth: Present: Moist Mucous Membranes Neck: Present: Normal Range of Motion Respiratory/Chest: Present: Clear to Auscultation, Good Air Exchange. No: Respiratory Distress, Accessory Muscle Use Cardiovascular: Present: Regular Rate and Rhythm, Normal S1, S2. No: Murmurs Abdomen: Present: Normal Bowel Sounds. No: Tenderness, Distention, Peritoneal Signs, Rebound, Guarding, McBurney's Point Tender, Rovsing's Sign Present, Hernias Back: Present: Normal Inspection. No: CVA Tenderness Upper Extremity: Present: Normal Inspection, Normal ROM. No: Cyanosis, Edema Lower Extremity: Present: Normal Inspection, Normal ROM. No: Edema Neurological: Present: GCS=15, CN II-XII Intact, Speech Normal Skin: Present: Warm, Dry, Normal Color. No: Rashes Psychiatric: Present: Alert, Oriented x 3, Normal Insight, Normal Concentration Vital Signs Temp Pulse Resp BP Pulse Ox 05/28/17 23:30 98.3 F 80 16 113/80 100 05/28/17 23:29 98.3 F 76 16 116/70 100 05/28/17 21:00 98.3 F 78 16 110/70 100 05/28/17 19:10 98.3 F 64 18 111/66 98 Medical Decision Making Re-evaluation Time: 22:59 Reassessment Condition: Re-examined, Improved - Lab Interpretations I have reviewed the lab results: Yes (mild anemia) Interpretation: No clinic. lab abnormalty ED Course and Treatment: 05/28/17 22:00 Patient has her menstruation at this time 05/28/17 22:58 Re-evaluation. Patient feels better. Discussed results and plan with patient who expresses understanding. All questions answered and there is agreement with the plan to discharge home with instructions. Patient stable for discharge. Return if symptoms persist or worsen. Patient was recommended to see her OUTBOUND SALES ADVISOR doctor due to abnormal endometrial findings on CT and U/S. Patient stated she has an appointment to see her OUTBOUND SALES ADVISOR in 3 days. (Ryan Neely) - Lab Interpretations Lab Results: 05/28/17 21:40 05/28/17 21:40 Lab Results 05/28/17 22:00: Urine Color Yellow, Urine Appearance Clear, Urine pH 6.0, Ur Specific [place] 1.015, Urine Protein Negative, Urine Glucose (UA) Negative, Urine Ketones Negative, Urine Blood Moderate H, Urine Nitrate Negative, Urine Bilirubin Negative, Urine Urobilinogen 0.2, Ur Leukocyte Esterase Negative, Urine RBC 1 - 3, Urine WBC 0 - 2, Ur Epithelial Cells 3 - 4, Urine HCG, Qual Negative 05/28/17 21:40: Sodium 142, Potassium 3.9, Chloride 108 H, Carbon Dioxide 24, Anion Gap 14, BUN 17, Creatinine 0.7, Est GFR ( Amer) > 60, Est GFR (Non- Af Amer) > 60, Random Glucose 84, Calcium 9.5, Total Bilirubin 0.4, AST 24, ALT 25, Alkaline Phosphatase 55, Total Protein 6.7, Albumin 3.9, Globulin 2.8, Albumin/Globulin Ratio 1.4 05/28/17 21:40: WBC 4.5, RBC 4.12, Hgb 11.4 L, Hct 35.5 L, MCV 86.2, MCH 27.7, MCHC 32.1, RDW 12.6, Plt Count 230, MPV 10.6, Gran % 33.3 L, Lymph % (Auto) 54.8 H, [place] % (Auto) 8.1 H, Eos % (Auto) 3.4, Baso % (Auto) 0.4, Gran # 1.48, Lymph # (Auto) 2.4, [place] # (Auto) 0.4, Eos # (Auto) 0.2, Baso # (Auto) 0.02 - Medication Orders Current Medication Orders: Discontinued Medications Sodium Chloride (Sodium Chloride 0.9%) 1,000 mls @ 999 mls/hr IV .Q1H1M STA Stop: 05/28/17 21:54 Last Admin: 05/28/17 21:49 Dose: 999 mls/hr eMAR Start Stop Document 05/28/17 21:49 AB (Rec: 05/28/17 21:49 AB [id number]) Intravenous Solution Start Date 05/28/17 Start Time 21:49 End Date 05/28/17 End time 22:49 Total Infusion Time 60 Ketorolac Tromethamine (Toradol) 30 mg IVP STAT STA Stop: 05/28/17 20:55 Last Admin: 05/28/17 21:49 Dose: 30 mg MAR Pain Assessment Document 05/28/17 21:49 AB (Rec: 05/28/17 21:49 AB [email or web address] Pain Reassessment Is this a pain reassessment? Yes Presence of Pain Presence of Pain Yes IVP Administration Document 05/28/17 21:49 AB (Rec: 05/28/17 21:49 AB [email or web address]) Charges for Administration # of IVP Administrations 1 Disposition/Present on Arrival - Present on Arrival Any Indicators Present on Arrival: No History of DVT/PE: No History of Uncontrolled Diabetes: No Urinary Catheter: No History of Decub. Ulcer: No History Surgical Site Infection Following: None - Disposition Have Diagnosis and Disposition been Completed?: Yes Disposition Time: 23:00 Patient Plan: Discharge - Disposition Diagnosis: Nonspecific abdominal pain, Abnormal CT of the abdomen Disposition: HOME/ ROUTINE Condition: GOOD Discharge Instructions (ExitCare): Flank Pain Additional Instructions: Call private doctor for follow up in 1-2 days . Make sure to see your drop board worker this Saturday as scheduled by you. continue taking Motrin for pain as recommended by your doctor. Return to emergency if symptoms worsen. Prescriptions: Pantoprazole Sodium [Protonix] 40 mg PO DAILY #20 ect Referrals: Armaan Talavera MD [Primary Care Provider] - Follow up with primary [facility] [Outside] - [facility] [Outside] - Follow up with primary Forms: [employer] (Romanian), WORK NOTE
[2017-05-28 21:57] LABS: BASO # 0.02 K/mm3 (0.0-2.0); BASO % 0.4 % (0.0-3.0); EOS # 0.2 (0.0-0.7); EOS % 3.4 % (1.5-5.0); GRAN # 1.48 (1.4-6.5); GRAN % 33.3 % (50.0-68.0); HEMOGLOBIN 11.4 g/dL (12.0-16.0); LYMPH # 2.4 (1.2-3.4); LYMPH % 54.8 % (22.0-35.0); MEAN CELL VOLUME 86.2 fl (80.0-105.0); MEAN CORPUSCULAR HEMOGLOBIN 27.7 pg (25.0-35.0); MEAN CORPUSCULAR HGB CONC 32.1 g/dl (31.0-37.0); MEAN PLATELET VOLUME 10.6 fl (7.0-11.0); MONO # 0.4 (0.1-0.6); MONO % 8.1 % (1.0-6.0); RBC 4.12 10^6/uL (3.5-6.1); RED CELL DISTRIBUTION WIDTH 12.6 % (11.5-14.5); WHITE BLOOD COUNT 4.5 10^3/ul (4.5-11.0)
[2017-05-28 22:07] LABS: ALB/GLOB RATIO 1.4 (1.1-1.8); ALBUMIN 3.9 g/dL (3.0-4.8); ALT/SGPT 25 U/L (7-56); AST/SGOT 24 U/L (14-36); BLOOD UREA NITROGEN 17 mg/dL (7-21); CALCIUM 9.5 mg/dL (8.4-10.5); GFR AFRICAN-AMERICAN > 60; GFR NON-AFRICAN AMERICAN > 60
[2017-05-28 22:45] VITALS: RESP 16; O2SAT 100
[2017-05-28 22:52] LABS: HCG,QUALITATIVE URINE NEGATIVE (NEGATIVE); URINE BILIRUBIN NEGATIVE (NEGATIVE); URINE BLOOD MODERATE (NEGATIVE); URINE GLUCOSE (UA) NEGATIVE (NEGATIVE); URINE LEUKOCYTE ESTERASE NEGATIVE Leu/uL (NEGATIVE); URINE NITRATE NEGATIVE (NEGATIVE); URINE PROTEIN NEGATIVE mg/dL (<30 mg/dL); URINE UROBILINOGEN 0.2 E.U./dL (<1 E.U./dL)
[2017-05-28 22:54] LABS: URINE APPEARANCE CLEAR (CLEAR); URINE COLOR YELLOW (YELLOW)
[2017-05-28 23:31] VITALS: BP 113/80; PULSE 80
[2017-05-28 23:34] LABS: URINE WBC 0 - 2 /hpf (0-6)
== END 2017-05-28 23:30 | disposition home or self-care (01) ==
LOC: ED 18:55
DX: R10.9 Unspecified abdominal pain (principal); R93.5 Abnormal findings on diagnostic imaging of other abdominal regions, including retroperitoneum
CPT/HCPCS: 80053; 81001; 84703; 85025; 96361; 96374; 99283; J1885; J7040

== ENCOUNTER 2017-09-07 20:16 | Emergency (ER) | payer SELFPAY ==
[2017-09-07 20:37] VITALS: BMI 30.2
--- NOTE | 2017-09-07 21:13 | ED PDOC ---
Arrival/HPI - General Chief Complaint: Upper Extremity Problem/Injury Time Seen by Provider: 09/07/17 20:44 Historian: Patient - History of Present Illness Narrative History of Present Illness (Text): 09/07/17 20:50 Evie Bustos is a 42 year old female who presents to the Emergency department complaining of right shoulder/right upper back discomfort today. Patient states this is the result of lifting heavy packages. Patient states she took some Motrin at home with minimal relief. Patient denies any weakness/numbness/ tingling in the extremity, decreased range of motion, history of blunt trauma, or any other complaints. Symptom Onset: Gradual Symptom Course: Unchanged Activities at Onset: Light Context: Home Past Medical History - Provider Review Nursing Documentation Reviewed: Yes - Infectious Disease Hx of Infectious Diseases: None - Tetanus Immunization Tetanus Immunization: Unknown - Past Medical History Past Medical History: No Previous - Psychiatric Hx Depression: No Hx Emotional Abuse: No Hx Physical Abuse: No Hx Substance Use: No - Surgical History Hx Appendectomy: Yes - Anesthesia Hx Anesthesia: Yes Hx Anesthesia Reactions: No Hx Malignant Hyperthermia: No - Suicidal Assessment Feels Threatened In Home Enviroment: No Family/Social History - Physician Review Nursing Documentation Reviewed: Yes Family/Social History: Unknown Family HX Smoking Status: Never Smoked Hx Alcohol Use: No Hx Substance Use: No Hx Substance Use Treatment: No Allergies/Home Meds Allergies/Adverse Reactions: Allergies No Known Allergies Allergy (Verified 09/07/17 20:45) pt bstates no allergy to medication Review of Systems - Physician Review All systems were reviewed & negative as marked: Yes - Review of Systems Constitutional: Normal. absent: Fevers Eyes: Normal ENT: Normal Respiratory: Normal. absent: SOB, Cough Cardiovascular: Normal. absent: Chest Pain Gastrointestinal: Normal. absent: Abdominal Pain, Diarrhea, Nausea, Vomiting Genitourinary Female: Normal. absent: Dysuria, Frequency, Hematuria, Urine Output Changes Musculoskeletal: Arthralgias (+right shoulder pain), Back Pain (+right upper back pain). absent: Neck Pain Skin: Normal. absent: Rash Neurological: Normal. absent: Headache, Dizziness Endocrine: Normal Hemo/Lymphatic: Normal Psychiatric: Normal Physical Exam Vital Signs Reviewed: Yes Vital Signs Temp Pulse Resp BP Pulse Ox 09/07/17 20:32 98.7 F 96 H 16 130/72 98 Temperature: Afebrile Blood Pressure: Normal Pulse: Regular Respiratory Rate: Normal Appearance: Positive for: Well-Appearing, Non-Toxic, Comfortable Pain Distress: None Mental Status: Positive for: Alert and Oriented X 3 - Systems Exam Head: Present: Atraumatic, Normocephalic Pupils: Present: PERRL Extroacular Muscles: Present: EOMI Conjunctiva: Present: Normal Ears: Present: Normal, NORMAL TM, Normal Canal. No: Erythema, TM Bulging, Fluid , TM Perf Mouth: Present: Moist Mucous Membranes Pharnyx: Present: Normal. No: ERYTHEMA, EXUDATE, TONSILS ENLARGED, Peritonsilar Swelling, Uvular Deviation, Muffled/Hoarse Voice, Strider, Soft Palate/Uvular Edema Nose (External): Present: Atraumatic Nose (Internal): Present: Normal Inspection Neck: Present: Normal Range of Motion (Supple, Full ROM). No: Meningeal Signs, MIDLINE TENDERNESS, Paraspinal Tenderness Respiratory/Chest: Present: Clear to Auscultation, Good Air Exchange. No: Respiratory Distress, Accessory Muscle Use Cardiovascular: Present: Regular Rate and Rhythm, Normal S1, S2. No: Murmurs Abdomen: No: Tenderness, Distention, Peritoneal Signs Back: Present: Normal Inspection. No: CVA Tenderness, Midline Tenderness, Paraspinal Tenderness, Other (No dorsal spinal tenderness) Upper Extremity: Present: Normal Inspection, Normal ROM (Full ROM), NORMAL PULSES, Neurovascularly Intact, Capillary Refill < 2s, Other (Minimal discomfort with right shoulder abduction). No: Cyanosis, Edema, Tenderness, Swelling, Erythema, Temperature Abnormalties, Deformity Lower Extremity: Present: Normal Inspection, NORMAL PULSES. No: Edema Neurological: Present: GCS=15, CN II-XII Intact, Speech Normal, Motor Func Grossly Intact, Normal Sensory Function, Normal Cerebellar Funct, Gait Normal, Memory Normal Skin: Present: Warm, Dry, Normal Color. No: Rashes Psychiatric: Present: Alert, Oriented x 3, Normal Insight, Normal Concentration Medical Decision Making ED Course and Treatment: 09/07/17 20:50 Impression: 42 year old female complaining of right shoulder/right upper back discomfort today. Differential Diagnosis included but are not limited to: musculoskeletal pain vs. sprain vs. strain Plan: -- Flexeril -- Toradol -- Reassess and disposition Progress Notes: 09/08/17 00:00 On re-evaluation, patient feels better and is in no acute distress. Patient in agreement with plan to be discharged home. Patient is stable for discharge. Patient was instructed to follow up with physician or return if symptoms worsen or new concerning symptoms arise. - Medication Orders Current Medication Orders: Discontinued Medications Cyclobenzaprine HCl (Flexeril) 10 mg PO ONCE ONE Stop: 09/07/17 21:21 Last Admin: 09/07/17 21:29 Dose: 10 mg Ketorolac Tromethamine (Toradol) 60 mg IM ONCE ONE Stop: 09/07/17 20:56 Last Admin: 09/07/17 21:29 Dose: 60 mg MAR Pain Assessment Document 09/07/17 21:29 [facility] (Rec: 09/07/17 21:30 [facility] [id number]) Pain Reassessment Is this a pain reassessment? No Sleep Is patient sleeping during reassessment? No Presence of Pain Presence of Pain Yes Pain Scale Used Pain Scale Used Numeric Location Left, Right or Bilateral Right Pain Location Body Site Shoulder Description Description Acute Intensity of Pain at present 8 Acceptable Level of Pain 0 Pain Behavior Facial Grimacing Aggravating Factors ADL's Alleviating Factors/Management Inactivity Techniques Alleviating Factors Inactivity IM Administration Charges Document 09/07/17 21:29 [facility] (Rec: 09/07/17 21:30 [facility] [id number]) Injection Site MAR Injection Site Left Deltoid Charges for Administration # of IM Administrations 1 - Scribe Statement The provider has reviewed the documentation as recorded by the Lynn Pack Provider Scribe Attestation: All medical record entries made by the Scribe were at my direction and personally dictated by me. I have reviewed the chart and agree that the record accurately reflects my personal performance of the history, physical exam, medical decision making, and the department course for this patient. I have also personally directed, reviewed, and agree with the discharge instructions and disposition. Disposition/Present on Arrival - Present on Arrival Any Indicators Present on Arrival: No History of DVT/PE: No History of Uncontrolled Diabetes: No Urinary Catheter: No History of Decub. Ulcer: No History Surgical Site Infection Following: None - Disposition Have Diagnosis and Disposition been Completed?: Yes Diagnosis: Muscle strain, Muscle spasm Disposition Time: 23:58 Patient Plan: Discharge Patient Problems: Current Active Problems Problem Status Onset Muscle spasm Acute Muscle strain Acute Condition: GOOD Additional Instructions: Rest/no strenuous physical activity/take meds as prescribed/follow up with your doctor nirmala boyce Prescriptions: Cyclobenzaprine [Cyclobenzaprine HCl] 10 mg PO TID PRN #15 tab PRN Reason: Muscle Spasm Naproxen [Naprosyn Tab] 375 mg PO BID PRN #14 tab PRN Reason: Pain, Moderate (4-7) Referrals: Armaan Talavera MD [Primary Care Provider] - Follow up with primary Forms: [employer] ([place])
[2017-09-08 00:29] VITALS: BP 131/76; PULSE 81; RESP 17; TEMP 97.8; O2SAT 97
== END 2017-09-08 00:31 | disposition home or self-care (01) ==
LOC: ED 20:16
DX: S46.911A Strain of unspecified muscle, fascia and tendon at shoulder and upper arm level, right arm, initial encounter (principal); X50.0XXA Overexertion from strenuous movement or load, initial encounter; Y92.89 Other specified places as the place of occurrence of the external cause; M62.838 Other muscle spasm
CPT/HCPCS: 96372; 99283; J1885